=== PATIENT | male | born 1970 | race Caucasian/White ===

== ENCOUNTER 2017-08-16 21:41 | Emergency (ER) | payer BC, OTHER ==
[2017-08-16] MEDS ORDERED: Adacel (T-DAP) 0.5 ML VIAL ONE (22:49)
== END 2017-08-16 23:42 | disposition home or self-care (01) ==
LOC: ERS 21:41
DX: R55 Syncope and collapse (principal); E78.5 Hyperlipidemia, unspecified; I10 Essential (primary) hypertension; F17.210 Nicotine dependence, cigarettes, uncomplicated; Z79.899 Other long term (current) drug therapy
CPT/HCPCS: 90715; 93005